=== PATIENT | female | born 1995 | race Caucasian/White ===

== ENCOUNTER 2017-04-29 23:16 | Emergency (ER) | payer MEDICAID ==
[2017-04-30 03:38] LABS: microscopic required? NO
[2017-04-30 03:44] LABS: PLATELET COUNT 229 x10^3mcL (130-400)
[2017-04-30 03:45] LABS: UA SPECIFIC GRAVITY 1.015 (1.005-1.035); urine erythrocyte NEGATIVE (NEGATIVE)
[2017-04-30 03:45] LABS: BASOPHIL % 2.7 % (0-2); RED CELL DISTRIBUTION WIDTH 16.3 % (11.5-14.5)
[2017-04-30 03:58] LABS: CALCIUM 8.6 mg/dL (8.5-10.1); CARBON DIOXIDE 24.3 mmol/L (21-32); CHLORIDE SERUM 102 mmol/L (98-107); CREATININE SERUM 0.7 mg/dL (0.6-1.0); GFR1 > 60 mL/min; GLUCOSE SERUM 95 mg/dL (74-106); POTASSIUM SERUM 3.2 mmol/L (3.5-5.1); SODIUM SERUM 137 mmol/L (136-145)
[2017-04-30 04:02] LABS: ALBUMIN 3.9 g/dL (3.4-5.0); ALKALINE PHOSPHATASE 76 U/L (46-116); ALT/SGPT 21 U/L (14-59); AMYLASE 95 U/L (25-115); AST/SGOT 22 U/L (15-37); BILIRUBIN TOTAL 0.55 mg/dL (0.20-1.00); LIPASE 78 IU/L (73-393); TOTAL PROTEIN, SERUM 7.5 g/dL (6.4-8.2)
[2017-04-30 06:32] VITALS: BP 112/64
== END 2017-04-30 06:32 | disposition home or self-care (01) ==
LOC: ED 23:16
PROVIDERS: Emergency Medicine
DX: R10.9 Unspecified abdominal pain (principal)
CPT/HCPCS: 36415; J1885; J2270; Q0092

== ENCOUNTER 2018-06-22 22:10 | Emergency (ER) | payer OTHER ==
[~2018-06-22] VITALS: Ht 157.5 cm; Wt 65.3 kg
[2018-06-22 22:16] VITALS: Ht 157.5 cm; Wt 65.3 kg
[2018-06-23 02:14] VITALS: BP 119/74
== END 2018-06-23 02:14 | disposition home or self-care (01) ==
LOC: ED 22:10
DX: S66.911A Strain of unspecified muscle, fascia and tendon at wrist and hand level, right hand, initial encounter (principal); X50.0XXA Overexertion from strenuous movement or load, initial encounter; Y93.89 Activity, other specified; Y92.89 Other specified places as the place of occurrence of the external cause; Y99.8 Other external cause status
CPT/HCPCS: J1100; J1885

== ENCOUNTER 2018-09-16 22:36 | Emergency (ER) | payer MEDICAID ==
[~2018-09-16] VITALS: Ht 157.5 cm; Wt 66.2 kg
[2018-09-16 22:59] VITALS: Ht 157.5 cm; Wt 66.2 kg
[2018-09-17 01:51] LABS: UA SPECIFIC GRAVITY >=1.030 (1.005-1.035); microscopic required? YES; urine erythrocyte 3+ (NEGATIVE)
[2018-09-17 01:59] LABS: BASOPHIL % 0.4 % (0-2); PLATELET COUNT 260 x10^3mcL (130-400)
[2018-09-17 02:02] LABS: RED CELL DISTRIBUTION WIDTH 14.8 % (11.5-14.5)
[2018-09-17 02:13] LABS: CALCIUM 8.5 mg/dL (8.5-10.1); CARBON DIOXIDE 26.7 mmol/L (21-32); CHLORIDE SERUM 106 mmol/L (98-107); CREATININE SERUM 0.7 mg/dL (0.6-1.0); GFR1 > 60 mL/min; GLUCOSE SERUM 93 mg/dL (74-106); POTASSIUM SERUM 3.5 mmol/L (3.5-5.1); SODIUM SERUM 139 mmol/L (136-145)
[2018-09-17 02:14] LABS: ALBUMIN 3.8 g/dL (3.4-5.0); ALKALINE PHOSPHATASE 95 U/L (46-116); ALT/SGPT 19 U/L (14-59); AST/SGOT 14 U/L (15-37); BILIRUBIN TOTAL 0.32 mg/dL (0.20-1.00); LIPASE 87 IU/L (73-393); TOTAL PROTEIN, SERUM 7.6 g/dL (6.4-8.2)
[2018-09-17 03:35] VITALS: BP 116/73
== END 2018-09-17 03:35 | disposition home or self-care (01) ==
LOC: ED 22:36
PROVIDERS: Emergency Medicine
DX: R10.30 Lower abdominal pain, unspecified (principal); R11.0 Nausea; R35.0 Frequency of micturition; R39.15 Urgency of urination
CPT/HCPCS: J2270; J7030

== ENCOUNTER 2018-09-25 16:18 | Emergency (ER) | payer MEDICAID ==
[~2018-09-25] VITALS: Ht 157.5 cm; Wt 65.8 kg
[2018-09-25 16:20] VITALS: Ht 157.5 cm; Wt 65.8 kg
[2018-09-25 18:25] LABS: BASOPHIL % 0.5 % (0-2); PLATELET COUNT 216 x10^3mcL (130-400)
[2018-09-25 18:28] LABS: RED CELL DISTRIBUTION WIDTH 15.5 % (11.5-14.5)
[2018-09-25 19:01] LABS: CALCIUM 9.1 mg/dL (8.5-10.1); CHLORIDE SERUM 101 mmol/L (98-107); CREATININE SERUM 0.7 mg/dL (0.6-1.0); GFR1 > 60 mL/min; GLUCOSE SERUM 85 mg/dL (74-106); POTASSIUM SERUM 3.3 mmol/L (3.5-5.1); SODIUM SERUM 136 mmol/L (136-145)
[2018-09-25 19:06] LABS: ALBUMIN 4.1 g/dL (3.4-5.0); ALKALINE PHOSPHATASE 93 U/L (46-116); ALT/SGPT 14 U/L (14-59); AST/SGOT 19 U/L (15-37); BILIRUBIN TOTAL 0.5 mg/dL (0.20-1.00); LIPASE 65 IU/L (73-393)
[2018-09-25 19:08] LABS: TOTAL PROTEIN, SERUM 8.3 g/dL (6.4-8.2)
[2018-09-25 20:04] VITALS: BP 110/64
== END 2018-09-25 20:04 | disposition home or self-care (01) ==
LOC: ED 16:18
PROVIDERS: Emergency Medicine
DX: R07.89 Other chest pain (principal); N20.0 Calculus of kidney
CPT/HCPCS: J2405; J7030; Q0092

== ENCOUNTER 2019-08-13 00:16 | Emergency (ER) | payer BC ==
[~2019-08-13] VITALS: Ht 162.6 cm; Wt 68.0 kg
[2019-08-13 00:20] VITALS: Ht 162.6 cm; Wt 68.0 kg
[2019-08-13 01:52] VITALS: BP 107/62
== END 2019-08-13 01:50 | disposition short-term general hospital (02) ==
LOC: ED 00:16
DX: O26.852 Spotting complicating pregnancy, second trimester (principal); R10.30 Lower abdominal pain, unspecified; Z3A.26 26 weeks gestation of pregnancy

== ENCOUNTER 2020-11-26 09:42 | Emergency (ER) | payer MEDICAID ==
[~2020-11-26] VITALS: Ht 157.5 cm; Wt 68.9 kg
[2020-11-26 09:53] VITALS: Ht 157.5 cm; Wt 68.9 kg
[2020-11-26 11:59] VITALS: BP 128/75
== END 2020-11-26 11:59 | disposition home or self-care (01) ==
LOC: ED 09:42
DX: S52.121A Displaced fracture of head of right radius, initial encounter for closed fracture (principal); Z98.890 Other specified postprocedural states; W01.0XXA Fall on same level from slipping, tripping and stumbling without subsequent striking against object, initial encounter; Y93.89 Activity, other specified; Y92.89 Other specified places as the place of occurrence of the external cause; Y99.8 Other external cause status
CPT/HCPCS: J1885